=== PATIENT | male | born 1990 ===

== ENCOUNTER 2019-05-13 02:14 | Emergency (ER) | payer OTHER ==
[~2019-05-13] VITALS: Ht 177.8 cm; Wt 81.8 kg
[2019-05-13 02:18] VITALS: BP 137/81; TEMP 98.2
[2019-05-13 04:47] VITALS: PULSE 79
== END 2019-05-13 04:47 | disposition home or self-care (01) ==
LOC: COL.ER 02:14
DX: N52.9 Male erectile dysfunction, unspecified (principal); R10.2 Pelvic and perineal pain
CPT/HCPCS: J7030; Q9967

== ENCOUNTER 2019-05-13 16:16 | Emergency (ER) | payer OTHER ==
[~2019-05-13] VITALS: Ht 177.8 cm; Wt 81.8 kg
[2019-05-13 16:21] VITALS: BP 121/69; TEMP 97.9
[2019-05-13 17:54] VITALS: PULSE 77
== END 2019-05-13 17:55 | disposition home or self-care (01) ==
LOC: COL.ER 16:16
DX: S39.94XA Unspecified injury of external genitals, initial encounter (principal); X58.XXXA Exposure to other specified factors, initial encounter